=== PATIENT | female | born 1970 | race African-American/Black ===

== ENCOUNTER 2021-03-22 03:46 | Emergency (ER) | payer SELFPAY ==
[~2021-03-22 03:46] MED LIST: IBUP-2030 PO; TRAM50TA3 PO
== END 2021-03-22 05:07 | disposition left against medical advice (07) ==
LOC: ER 04:35
DX: Z53.21 Procedure and treatment not carried out due to patient leaving prior to being seen by health care provider (principal)

== ENCOUNTER 2021-04-28 13:45 | Emergency (ER) | payer SELFPAY ==
[~2021-04-28] VITALS: Ht 170.2 cm; Wt 84.0 kg
[2021-04-28 15:50] VITALS: BP 119/67
== END 2021-04-28 15:55 | disposition home or self-care (01) ==
LOC: ER 13:45
DX: T67.5XXA Heat exhaustion, unspecified, initial encounter (principal); X58.XXXA Exposure to other specified factors, initial encounter; Y93.89 Activity, other specified; Y92.89 Other specified places as the place of occurrence of the external cause; Y99.8 Other external cause status; I10 Essential (primary) hypertension
CPT/HCPCS: 99281

== ENCOUNTER 2024-12-21 08:50 | Emergency (ER) | payer SELFPAY ==
[~2024-12-21] VITALS: Ht 165.1 cm; Wt 100.0 kg
[2024-12-21 08:53] VITALS: O2SAT 98
[2024-12-21] MEDS: MORPHINE SULFATE 4 MG/ML INJ (FOR IV/IM USE) IV ONE (09:00)
[2024-12-21 09:19] LABS: BASOPHILS % 1.0 % (0.0-2.0); EOSINOPHILS % 1.7 % (0.0-5.0); HEMATOCRIT. 39.0 % (36.0-48.0); HEMOGLOBIN. 13.1 g/dL (12.0-16.0); LYMPHOCYTES % 43.7 % (20.0-50.0); MEAN PLATELET VOLUME 8.4 fl (7.4-10.4); MONOCYTES % 7.5 % (2.0-8.0); NEUTROPHILS % 46.1 % (40.0-76.0); PLATELET 280 x1000/uL (130-400); RED BLOOD CELL COUNT 4.38 mill/uL (4.2-5.4); RED CELL DISTRIBUTION WIDTH 13.5 % (11.6-14.6)
[2024-12-21 09:31] LABS: HCG SCREEN NEGATIVE; INR 0.9
[2024-12-21 09:37] LABS: CREATININE 0.9 mg/dL (0.6-1.0); UREA NITROGEN BLOOD 15 mg/dL (9-23)
[2024-12-21 09:39] LABS: ASPARTATE AMINOTRANSFERASE 21 IU/L (<34); BILIRUBIN DIRECT < 0.1 mg/dL (<=3.0); BILIRUBIN TOTAL 0.4 mg/dL (0.1-1.0); PROTEIN TOTAL 7.4 g/dL (6.0-8.3)
[2024-12-21] MEDS ORDERED: TOPUD PO (10:57)
[2024-12-21 11:24] VITALS: BP 132/78; PULSE 72; RESP 16; TEMP 37; O2SAT 98
== END 2024-12-21 11:26 | disposition home or self-care (01) ==
LOC: ER 08:50
DX: R10.84 Generalized abdominal pain (principal); M79.621 Pain in right upper arm; M79.631 Pain in right forearm; R41.82 Altered mental status, unspecified
CPT/HCPCS: 80076; 80048; 80320; 84703; 83690; 85025; 85610; 85730; 86850; 86900; 86901; 36415; 71045; 73060; 73090; 70450; 72125; 74176; 93005; 96374; 99285; J2270; Z7610 ×3; A4565; A4606; G0480